=== PATIENT | female | born 1965 | race African-American/Black ===

== ENCOUNTER 2016-12-25 05:58 | Day surgery (SDC) | payer OTHER ==
[~2016-12-25] VITALS: Ht 154.9 cm; Wt 96.8 kg
[~2016-12-25 05:58] MED LIST: SODIUM CHLORIDE 0.9% 1,000 ML IV ONE
[2016-12-25] MEDS ORDERED: ALBUTEROL SULFATE 2.5 MG/0.5 ML NEB SOLUTION NEB ONE (05:59)
[2016-12-25] MEDS ORDERED: BENZOCAINE 20% 50 MCG/SPRAY 57 GM TP ONE (05:59)
[2016-12-25] MEDS ORDERED: LIDOCAINE HCL 4% 50 ML SOLUTION TP ONE (05:59)
[2016-12-25] MEDS ORDERED: LIDOCAINE HCL 2% 30 ML JELLY TP ONE (05:59)
[2016-12-25] MEDS ORDERED: SODIUM CHLORIDE 0.9% 1,000 ML IV ONE (06:00)
[2016-12-25] MEDS ORDERED: LEVO50 PO (07:15)
[2016-12-25] MEDS ORDERED: DOCU250C91 PO (07:15)
[2016-12-25] MEDS ORDERED: MIDAZOLAM HCL 2 MG/2 ML VIAL ONE (07:20)
[2016-12-25] MEDS ORDERED: FentaNYL CITRATE-PF 100 MCG/2 ML VIAL ONE (07:20)
[2016-12-25] MEDS ORDERED: MethylPREDNISolone SOD SUCC 125 MG/2 ML VIAL IVP ONE (08:45)
[2016-12-25] MEDS ORDERED: MethylPREDNISolone SOD SUCC 125 MG/2 ML VIAL ONE (08:49)
[2016-12-25] MEDS ORDERED: OXYGEN THERAPY IH SCH (20:00)
== END 2016-12-25 09:50 | disposition home or self-care (01) ==
LOC: SURGERY 05:58
PROVIDERS: ATTEND Internal Medicine Critical Care Medicine
DX: J38.4 Edema of larynx (principal); B37.0 Candidal stomatitis; N94.89 Other specified conditions associated with female genital organs and menstrual cycle; Z88.2 Allergy status to sulfonamides; Z72.89 Other problems related to lifestyle; Z90.721 Acquired absence of ovaries, unilateral; Z98.890 Other specified postprocedural states
CPT/HCPCS: 31623; 31624; 71010; 87015 ×2; 87070; 87101; 87147; 87205; 87220; 88108; 88184; 88185; 88312; J2250; J2930; J3010; J7030